=== PATIENT | female | born 1935 | race Two or more races ===

== ENCOUNTER 2017-12-09 09:30 | Inpatient (IN) | payer OTHER ==
[~2017-12-09] VITALS: Ht 162.6 cm; Wt 73.9 kg
[~2017-12-09 09:30] MED LIST: CARDURA XL4 MG/BOTTL PO; CATAFLAM50 MG PO; COD LIVER OIL1 EACH PO; COREG PO; HYZAAR 100/25 T1 TAB PO; INTEGRA PLUS CAPSULE PO; OXYC1TAB9 PO; SPIRIVA; SPIRIVA PO; XARELTO 10MG PO
[2017-12-18] MEDS ORDERED: INTEGRA PLUS C1 EACH PO ×2 (07:01)
[2017-12-18] MEDS ORDERED: OXYC1TAB9 PO ×2 (07:01)
[2017-12-18] MEDS ORDERED: XARELTO10 MG PO ×2 (07:01)
== END 2017-12-18 16:51 | DRG 470 ==
LOC: O/R 12-16 06:20 → SURH 12-16 06:20 → SURG 12-16 08:00 → SURH 12-16 13:35
PROVIDERS: Orthopaedic Surgery Sports Medicine
PROC: 0SRD0J9 Replacement of Left Knee Joint with Synthetic Substitute, Cemented, Open Approach (ICD-10-PCS; principal; 2017-12-16 08:00)
DX: M17.12 Unilateral primary osteoarthritis, left knee (principal)

== ENCOUNTER 2017-12-16 00:44 | Emergency (ER) | payer OTHER ==
[~2017-12-16] VITALS: Ht 162.6 cm; Wt 73.9 kg
== END 2017-12-16 14:46 | disposition home or self-care (01) ==
LOC: ER 00:44
DX: S70.02XA Contusion of left hip, initial encounter (principal); R50.9 Fever, unspecified; W18.09XA Striking against other object with subsequent fall, initial encounter; Y93.89 Activity, other specified; Y92.89 Other specified places as the place of occurrence of the external cause; Y99.8 Other external cause status

== ENCOUNTER 2018-01-07 12:55 | Inpatient (IN) | payer OTHER ==
[~2018-01-07] VITALS: Ht 162.6 cm; Wt 73.9 kg
[~2018-01-07 12:55] MED LIST changes: +INTEGRA PLUS C1 EACH PO; +XARELTO10 MG PO
[2018-01-07] MEDS ORDERED: COREG CR10 MG (13:03)
[2018-01-07] MEDS ORDERED: PROTONIX40 M1 (13:04)
[2018-01-12] MEDS ORDERED: XARELTO15 MG PO (12:39)
[2018-01-12] MEDS ORDERED: CARVEDILOL3.125 MG PO (12:41)
[2018-01-12] MEDS ORDERED: XARELTO20 MG PO (12:41)
[2018-01-12] MEDS ORDERED: LOSARTAN POTASS50 MG PO (12:42)
[2018-01-12] MEDS ORDERED: POLY119PG PO (12:43)
== END 2018-01-12 15:03 | disposition home or self-care (01) | DRG 175 ==
LOC: ER 12:55 → ICU-2 01-08 09:52 → SEC-K 01-11 11:18 → MEDI 01-11 16:10 → MEDJ 01-11 16:10
PROC: B54DZZZ Ultrasonography of Bilateral Lower Extremity Veins (ICD-10-PCS; 2018-01-08)
PROC: BW24Y0Z Computerized Tomography (CT Scan) of Chest and Abdomen using Other Contrast, Unenhanced and Enhanced (ICD-10-PCS; principal; 2018-01-09)
PROC: 02HV33Z Insertion of Infusion Device into Superior Vena Cava, Percutaneous Approach (ICD-10-PCS; 2018-01-09)
PROC: B246ZZZ Ultrasonography of Right and Left Heart (ICD-10-PCS; 2018-01-09)
PROC: 4A12X4Z Monitoring of Cardiac Electrical Activity, External Approach (ICD-10-PCS; 2018-01-11)
PROC: 4A033R1 Measurement of Arterial Saturation, Peripheral, Percutaneous Approach (ICD-10-PCS; 2018-01-12)
DX: I26.99 Other pulmonary embolism without acute cor pulmonale (principal); I21.4 Non-ST elevation (NSTEMI) myocardial infarction; J81.0 Acute pulmonary edema; I82.412 Acute embolism and thrombosis of left femoral vein; R09.02 Hypoxemia; M17.12 Unilateral primary osteoarthritis, left knee; Z96.652 Presence of left artificial knee joint; I87.2 Venous insufficiency (chronic) (peripheral); I27.29 Other secondary pulmonary hypertension

== ENCOUNTER 2018-06-26 10:14 | Outpatient (CLI) | payer OTHER ==
[~2018-06-26 10:14] MED LIST changes: +CARVEDILOL3.125 MG PO; +COREG CR10 MG; +LOSARTAN POTASS50 MG PO; +POLY119PG PO; +PROTONIX40 M1; +XARELTO15 MG PO; +XARELTO20 MG PO
== END 2018-06-26 10:19 | disposition home or self-care (01) ==
LOC: LAB 10:14
DX: J43.2 Centrilobular emphysema (principal); Z51.81 Encounter for therapeutic drug level monitoring

== ENCOUNTER 2018-07-02 07:36 | Outpatient (CLI) | payer OTHER | END 2018-07-02 07:46 | disposition home or self-care (01) | LOC: TOM 07:36 | DX: J43.2 Centrilobular emphysema (principal); Z79.01 Long term (current) use of anticoagulants; Z86.718 Personal history of other venous thrombosis and embolism | CPT/HCPCS: 71260; Q9965 ==

== ENCOUNTER 2021-11-08 08:42 | Emergency (ER) | payer OTHER ==
[~2021-11-08] VITALS: Ht 162.6 cm; Wt 73.9 kg
== END 2021-11-08 12:03 | disposition home or self-care (01) ==
LOC: ER 08:42
DX: K59.00 Constipation, unspecified (principal); I10 Essential (primary) hypertension

== ENCOUNTER 2022-11-09 16:50 | Emergency (ER) | payer OTHER ==
[~2022-11-09] VITALS: Ht 162.6 cm; Wt 73.5 kg
[2022-11-09] MEDS ORDERED: LIPITOR40 M1 (17:11)
[2022-11-09] MEDS ORDERED: PROAIR RESPICL90 MCG IH (20:00)
[2022-11-09] MEDS ORDERED: TUSNEL LIQUID178 ML PO (20:00)
[2022-11-09] MEDS ORDERED: PAXLOVID 300-11 EACH PO (20:00)
== END 2022-11-09 20:04 | disposition home or self-care (01) ==
LOC: ER 16:50
DX: U07.1 COVID-19 (principal); R42 Dizziness and giddiness; I10 Essential (primary) hypertension
CPT/HCPCS: 36415; 70450; 93005; 96365; 99284; J3490

== ENCOUNTER 2023-07-12 15:11 | Emergency (ER) | payer OTHER ==
[~2023-07-12] VITALS: Ht 162.6 cm; Wt 73.9 kg
[~2023-07-12 15:11] MED LIST changes: +LIPITOR40 M1; +PAXLOVID 300-11 EACH PO; +PROAIR RESPICL90 MCG IH; +TUSNEL LIQUID178 ML PO
== END 2023-07-12 16:39 | disposition home or self-care (01) ==
LOC: ER 15:12
DX: R53.81 Other malaise (principal); I88.9 Nonspecific lymphadenitis, unspecified